=== PATIENT | female | born 1955 | race Caucasian/White ===

== ENCOUNTER → 2016-06-09 | Outpatient (CLI) | payer OTHER ==
[~2016-06-09] MED LIST: ASCA500 PO; CALC-388 PO; CLR10 PO; FERR1TAB39 PO; LOSA1TAB PO; METO50TA16 PO; MULT-506 PO; TRIA37.5 PO
[2016-06-09 09:44] LABS: BASO % 1.2 %; BASO ABS # 0.08 K/uL (0-0.2); COMPLETE YES; EOS % 4.5 %; IG% 0.3 %; LYMPH % 18.2 %; LYMPH ABS # 1.22 K/uL (1.2-3.4); MEAN CELL VOLUME 79.2 fL (80-100); MEAN CORPUSCULAR HEMOGLOBIN 24.8 pg (25-34); MEAN CORPUSCULAR HGB CONC 31.3 g/dl (32-36); MEAN PLATELET VOLUME 11.4 fL (7.4-10.4); NEUT % 61.8 %; PLATELET COUNT 246 K/uL (130-400); WHITE BLOOD COUNT 6.72 K/uL (4.8-10.8)
== END | disposition home or self-care (01) ==
LOC: C.LAB1850 07:00
PROVIDERS: ATTEND Nurse Practitioner Family
DX: D64.9 Anemia, unspecified (principal)

== ENCOUNTER → 2016-09-06 | Outpatient (CLI) | payer OTHER ==
[2016-09-06 16:59] LABS: BASO % 1.9 %; BASO ABS # 0.11 K/uL (0-0.2); COMPLETE YES; EOS % 5.8 %; HEMATOCRIT 40.5 % (37-47); IG% 0.2 %; LYMPH ABS # 1.48 K/uL (1.2-3.4); MEAN CELL VOLUME 78.8 fL (80-100); MEAN CORPUSCULAR HEMOGLOBIN 24.3 pg (25-34); MEAN CORPUSCULAR HGB CONC 30.9 g/dl (32-36); MONO % 10.4 %; NEUT % 55.7 %; PLATELET COUNT 266 K/uL (130-400); RED BLOOD COUNT 5.14 M/uL (4.2-5.4); WHITE BLOOD COUNT 5.69 K/uL (4.8-10.8)
[2016-09-06 17:19] LABS: BLOOD UREA NITROGEN 16 mg/dl (7-18); BUN/CREATININE RATIO 21.3 (10-20); CARBON DIOXIDE 31 mmol/L (21-32); CHLORIDE 107 mmol/L (98-107); CREATININE 0.73 mg/dl (0.60-1.20); GLUCOSE 127 mg/dl (70-99); POTASSIUM 3.8 mmol/L (3.5-5.1); SODIUM 144 mmol/L (136-145)
[2016-09-06 17:30] LABS: FERRITIN 9.8 ng/ml (8.0-388.0)
== END | disposition home or self-care (01) ==
LOC: C.LABBC 13:24
PROVIDERS: ATTEND Internal Medicine
DX: D64.9 Anemia, unspecified (principal)

== ENCOUNTER → 2016-09-23 | Outpatient (CLI) | payer OTHER ==
[2016-09-23 12:42] LABS: HEMATOCRIT 38.8 % (37-47); MEAN CELL VOLUME 76.5 fL (80-100); MEAN CORPUSCULAR HEMOGLOBIN 23.7 pg (25-34); MEAN CORPUSCULAR HGB CONC 30.9 g/dl (32-36); PLATELET COUNT 253 K/uL (130-400); RED BLOOD COUNT 5.07 M/uL (4.2-5.4); WHITE BLOOD COUNT 6.07 K/uL (4.8-10.8)
[2016-09-23 12:57] LABS: FERRITIN 6.3 ng/ml (8.0-388.0)
== END | disposition home or self-care (01) ==
LOC: C.LAB1850 10:27
PROVIDERS: ATTEND Nurse Practitioner Adult Health
DX: D64.9 Anemia, unspecified (principal); E83.19 Other disorders of iron metabolism

== ENCOUNTER → 2016-10-04 | Outpatient (CLI) | payer OTHER | END | disposition home or self-care (01) | LOC: C.LABSPEC 17:08 | PROVIDERS: ATTEND Internal Medicine | DX: D50.9 Iron deficiency anemia, unspecified (principal) ==

== ENCOUNTER → 2016-10-17 | Outpatient (CLI) | payer OTHER ==
[2016-10-17 14:57] LABS: BASO ABS # 0.08 K/uL (0-0.2); EOS % 2.7 %; HEMATOCRIT 40.9 % (37-47); IG% 0.4 %; LYMPH % 26.3 %; LYMPH ABS # 2.03 K/uL (1.2-3.4); MEAN CELL VOLUME 74.9 fL (80-100); MEAN CORPUSCULAR HEMOGLOBIN 22.7 pg (25-34); MEAN CORPUSCULAR HGB CONC 30.3 g/dl (32-36); MONO % 10.9 %; NEUT % 58.7 %; PLATELET COUNT 275 K/uL (130-400); RED BLOOD COUNT 5.46 M/uL (4.2-5.4); WHITE BLOOD COUNT 7.72 K/uL (4.8-10.8)
[2016-10-17 15:32] LABS: COMPLETE YES; MICROCYTOSIS PRESENT
== END | disposition home or self-care (01) ==
LOC: C.LAB1850 13:47
PROVIDERS: ATTEND Internal Medicine
DX: D64.9 Anemia, unspecified (principal)

== ENCOUNTER → 2016-11-21 | Outpatient (CLI) | payer OTHER ==
--- NOTE | 2016-11-22 07:41 | MAMMOGRAPHY REPORT ---
BILATERAL DIGITAL SCREENING MAMMOGRAM TOMOSYNTHESIS WITH CAD: 11/21/2016 CLINICAL HISTORY: Routine screening. Patient has no complaints. TECHNIQUE: Breast tomosynthesis in addition to standard 2D mammography was performed. Current study was also evaluated with a Computer Aided Detection (CAD) system. COMPARISON: Comparison is made to exams dated: 11/19/2015 mammogram, 11/17/2014 mammogram, 11/11/2013 ma mmogram, 11/07/2012 mammogram, 11/07/2011 mammogram, and 11/03/2010 mammogram - [facility] er. BREAST COMPOSITION: The tissue of both breasts is almost entirely fatty. FINDINGS: There are scattered benign-appearing microcalcifications. No suspicious mass, architectur al distortion or cluster of suspicious microcalcifications is seen. IMPRESSION: ACR BI-RADS CATEGORY 1: NEGATIVE There is no mammographic evidence of malignancy. A 1 year screening mammogram is recommended. The pa tient will receive written notification of the results. Approximately 10% of breast cancers are not detected with mammography. A negative mammographic report should not delay biopsy if a clinically suggestive mass is present. Luci Campbell M.D. ay/:11/21/2016 17:11:44 Gravel Wheeler: Marybeth GARCIA(Fortino)([place])([place]), [facility] letter sent: Normal 1/2 BI-RADS Code: ACR BI-RADS Category 1: Negative
== END | disposition home or self-care (01) ==
LOC: C.MAMM 10:02
PROVIDERS: ATTEND Obstetrics & Gynecology
DX: Z12.31 Encounter for screening mammogram for malignant neoplasm of breast (principal)

== ENCOUNTER → 2016-11-29 | Outpatient (CLI) | payer OTHER ==
[2016-11-29 13:08] LABS: BASO % 1.3 %; BASO ABS # 0.08 K/uL (0-0.2); COMPLETE YES; EOS % 4.3 %; HEMATOCRIT 41.2 % (37-47); IG% 0.3 %; LYMPH % 29.9 %; MEAN CELL VOLUME 76.4 fL (80-100); MEAN CORPUSCULAR HEMOGLOBIN 23.4 pg (25-34); MEAN CORPUSCULAR HGB CONC 30.6 g/dl (32-36); MONO % 12.6 %; NEUT % 51.6 %; PLATELET COUNT 251 K/uL (130-400); RED BLOOD COUNT 5.39 M/uL (4.2-5.4); WHITE BLOOD COUNT 6.02 K/uL (4.8-10.8)
[2016-11-29 15:02] LABS: BLOOD UREA NITROGEN 15 mg/dl (7-18); BUN/CREATININE RATIO 22.4 (10-20); CALCIUM 9.1 mg/dl (8.5-10.1); CARBON DIOXIDE 31 mmol/L (21-32); CHLORIDE 107 mmol/L (98-107); CREATININE 0.69 mg/dl (0.60-1.20); GLUCOSE 89 mg/dl (70-99); POTASSIUM 4.3 mmol/L (3.5-5.1); SODIUM 143 mmol/L (136-145)
== END | disposition home or self-care (01) ==
LOC: C.LAB1850 11:38
PROVIDERS: ATTEND Internal Medicine
DX: I10 Essential (primary) hypertension (principal); D64.9 Anemia, unspecified

== ENCOUNTER → 2016-12-22 | Outpatient (CLI) | payer OTHER ==
[~2016-12-22] MED LIST changes: +OPTIRAY 320 IV PRN
--- NOTE | 2016-12-22 15:52 | DIAGNOSTIC IMAGING REPORT ---
CT SCAN OF THE ABDOMEN AND PELVIS WITH IV CONTRAST CLINICAL HISTORY: Meckel's diverticulum. Anemia. COMPARISON STUDY: No priors. TECHNIQUE: Following the IV administration of 116 cc of Optiray 320, CT scan of the abdomen and pelvis is performed from the lung bases to the proximal femora. Images are reviewed in the axial, sagittal, and coronal planes. IV contrast was administered without complication. Automated dose control exposure was utilized. The examination is degraded by large body habitus, and by streak artifact from the body wall abutting the CT gantry. A dose lowering technique was utilized adhering to the principles of ALARA. CT DOSE: 1549.08 mGy.cm FINDINGS: Lung bases: The heart is normal in size and without pericardial effusion. The lung bases are clear noting dependent atelectasis. Liver: The contrast-enhanced liver is enlarged, measuring 22 cm in length. The liver demonstrates diffusely diminished attenuation consistent with hepatic steatosis. Fatty sparing is seen adjacent to gallbladder fossa. There is no intrahepatic biliary ductal dilatation. The hepatic veins and portal veins are patent. Gallbladder: Unremarkable. Spleen: Normal in size and attenuation. Pancreas: Unremarkable. Adrenal glands: Unremarkable. Kidneys: The contrast enhanced kidneys are normal in size and without hydronephrosis. The kidneys enhance symmetrically. A subcentimeter cyst is noted in the right kidney. Abdominal vasculature: The abdominal aorta is normal in course and caliber. Bowel: The small bowel and colon are normal in course and caliber. The appendix is well-visualized and normal. There is no convincing CT evidence of Meckel's diverticulum as clinically queried. Peritoneum: There is no intraperitoneal free air or abdominal ascites. There is a small fat-containing supraumbilical hernia. Lymphadenopathy: Prominent mesenteric lymph nodes in the right lower quadrant measure up to 12 mm in short axis. Pelvic viscera: The bladder is normal as visualized. The uterus is surgically absent. No adnexal lesion is seen. Skeletal structures: The skeletal structures are osteopenic. Mild to moderate lumbosacral spondylosis is observed. No lytic or blastic lesions are seen. Sclerotic change is seen in the sacroiliac joints. There is a 2.5 cm lesion within the central spinal canal seen at the level of T11. This is best seen on axial image #103. IMPRESSION: 1. There are no acute infectious or inflammatory findings in the abdomen or pelvis. 2. There is no convincing CT evidence of Meckel's diverticulum as clinically queried. 3. There is a 2.5 cm lesion identified within the central spinal canal the level of T11 which contains coarse calcifications. The appearance is nonspecific but not typical for a disc fragment, and an underlying neoplasm such as meningioma or possibly an astrocytoma is to be excluded. Correlation with a contrast-enhanced MRI of the thoracolumbar spine is recommended for further interrogation. 4. Hepatomegaly and hepatic steatosis. 5. Prominent mesenteric lymph nodes are incidentally noted in the right lower quadrant. 6. Additional findings as above. Electronically signed by: Aguilar Jiménez M.D. 12/22/2016 3:51 PM Dictated Date/Time: 12/22/2016 3:34 PM
== END | disposition home or self-care (01) ==
LOC: C.CTS 14:37
PROVIDERS: ATTEND Surgery
DX: K76.0 Fatty (change of) liver, not elsewhere classified (principal); R90.89 Other abnormal findings on diagnostic imaging of central nervous system

== ENCOUNTER → 2017-01-02 | Outpatient (CLI) | payer OTHER ==
[~2017-01-02] MED LIST changes: -OPTIRAY 320 IV PRN
--- NOTE | 2017-01-02 10:03 | DIAGNOSTIC IMAGING REPORT ---
GI MECKLES SCAN CLINICAL HISTORY: 61 years-old Female presenting with Meckel's diverticulum. TECHNIQUE: Following the IV administration of 16 mCi of technetium 99m pertechnetate, nuclear Meckel's scan was performed. The patient received cimetidine the night before the exam to improve the sensitivity of the exam. Initially, anterior flow images were obtained every 2 seconds. Anterior dynamic images were subsequently obtained every minute for a total of 60 minutes. COMPARISON: None. FINDINGS: Normal radiotracer distribution in the blood pool on anterior flow images. On the subsequent dynamic imaging, no focal tracer uptake in the region of the small bowel to suggest a Meckel's diverticulum. Physiologic distribution of radiotracer in the stomach. IMPRESSION: No evidence of a Meckel's diverticulum. Notably, approximately 70% of Meckel's diverticula with a history of prior bleeding contain ectopic pancreatic tissue, which notably will be photopenic on a pertechnetate examination. Electronically signed by: Abel Perales M.D. 01/02/2017 10:02 AM Dictated Date/Time: 01/02/2017 9:57 AM
== END | disposition home or self-care (01) ==
LOC: C.NUCL 08:25
PROVIDERS: ATTEND Surgery
DX: Q43.0 Meckel's diverticulum (displaced) (hypertrophic) (principal)

== ENCOUNTER → 2017-01-12 | Outpatient (CLI) | payer OTHER ==
[2017-01-12 14:01] LABS: BLOOD UREA NITROGEN 14 mg/dl (7-18); BUN/CREATININE RATIO 18.2 (10-20); CALCIUM 8.8 mg/dl (8.5-10.1); CARBON DIOXIDE 30 mmol/L (21-32); CHLORIDE 105 mmol/L (98-107); CREATININE 0.77 mg/dl (0.60-1.20); GLUCOSE 97 mg/dl (70-99); POTASSIUM 3.9 mmol/L (3.5-5.1); SODIUM 139 mmol/L (136-145)
== END | disposition home or self-care (01) ==
LOC: C.LAB1850 10:35
PROVIDERS: ATTEND Internal Medicine
DX: R71.0 Precipitous drop in hematocrit (principal); D64.9 Anemia, unspecified

== ENCOUNTER → 2017-01-16 | Outpatient (CLI) | payer OTHER ==
[~2017-01-16] MED LIST changes: +GADAVIST IV PRN
--- NOTE | 2017-01-16 14:34 | DIAGNOSTIC IMAGING REPORT ---
MRI OF THE LUMBAR SPINE WITH AND WITHOUT CONTRAST CLINICAL HISTORY: Abnormal finding on imaging study. COMPARISON STUDY: CT of the abdomen and pelvis December 22, 2016. TECHNIQUE: Utilizing a 1.5 Romana magnet and dedicated coil, multiplanar, multiecho imaging of the lumbar spine was performed before and after uneventful IV administration of 12 mL of Gadavist. FINDINGS: For purposes of numbering on this exam, the L5-S1 disc space is assigned to axial image 23 of 25. There is slight anterolisthesis of L4 and L5. Paravertebral soft tissues are unremarkable. The conus terminates at the mid L1 level. Note is made of an oval shaped avidly enhancing intradural extramedullary lesion within the left posterior lateral aspect of the thecal sac at the T11-T12 level. This mass measures 2.2 x 1.6 x 1.5 cm and corresponds to the abnormality shown on prior CT. T1 and T2 hypointense foci within this lesion reflect calcification. No additional intracanalicular masses are present. This results in marked narrowing of the central canal with displacement and deformity of the cord. Best shown on STIR sequence, there is suggestion of increased T2 signal within the thoracic cord which is partially imaged on since exam. This cord signal abnormality is at least at the T10 and T11 levels. The more proximal thoracic cord was not imaged on this exam. L1-2: The central canal and neural foramen are patent. L2-3: The central canal and neural foramen are patent. L3-4: There is disc space narrowing with disc bulge. There is a left foraminal disc protrusion. The central canal is mildly narrowed. There is mild to moderate narrowing of the left neural foramen. L4-5: There is anterolisthesis with facet arthrosis. Central canal is patent. There is mild narrowing of the right neural foramen. L5-S1: There is a tiny central disc protrusion. The central canal and neural foramen are patent. IMPRESSION: 1. 2.2 x 1.6 x 1.5 cm intradural extramedullary lesion within the left posterolateral aspect of the canal at the T11-T12 level which corresponds to the lesion shown on prior CT. Marked narrowing of the canal with significant mass effect upon the cord. Suspected associated cord signal abnormality which is partially imaged on this exam. 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 An intracanalicular schwannoma or neurofibroma could appear similar. 2. Mild multilevel degenerative changes within the lumbar spine, as described above. Electronically signed by: Julito Reis M.D. 01/16/2017 2:33 PM Dictated Date/Time: 01/16/2017 11:46 AM
== END | disposition home or self-care (01) ==
LOC: C.MRI 09:29
PROVIDERS: ATTEND Internal Medicine
DX: G95.9 Disease of spinal cord, unspecified (principal); M89.8X8 Other specified disorders of bone, other site

== ENCOUNTER → 2017-06-30 | Outpatient (CLI) | payer OTHER ==
[~2017-06-30] MED LIST changes: -GADAVIST IV PRN
[2017-06-30 15:37] LABS: HEMATOCRIT 39.2 % (37-47); HEMOGLOBIN 12.7 g/dL (12.0-16.0); MEAN CORPUSCULAR HGB CONC 32.4 g/dl (32-36); PLATELET COUNT 234 K/uL (130-400); RED CELL DISTRIBUTION WIDTH CV 17.2 % (11.5-14.5); RED CELL DISTRIBUTION WIDTH SD 48.7 fL (36.4-46.3); WHITE BLOOD COUNT 6.79 K/uL (4.8-10.8)
[2017-06-30 16:08] LABS: CREATININE 0.79 mg/dl (0.60-1.20)
[2017-06-30 16:12] LABS: TRANSFERRIN 304 mg/dl (200-360)
== END | disposition home or self-care (01) ==
LOC: C.LAB1850 14:42
PROVIDERS: ATTEND Internal Medicine
DX: D32.1 Benign neoplasm of spinal meninges (principal)

== ENCOUNTER → 2017-07-12 | Outpatient (CLI) | payer OTHER ==
[~2017-07-12] MED LIST changes: +GADAVIST IV PRN
--- NOTE | 2017-07-12 15:38 | DIAGNOSTIC IMAGING REPORT ---
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 TECHNIQUE: Multisequence, multiplanar MR imaging of the thoracic spine was performed before and after the administration of intravenous contrast. IV contrast: 11 mL of Gadavist. COMPARISON: MR of the lumbar spine from 01/16/2017. FINDINGS: Localizer images: Patient is status post hysterectomy. Normal thoracic kyphosis. The T7 vertebral body demonstrates a T1 hyperintense fat-containing lesion compatible with a benign hemangioma. Remaining vertebral bodies demonstrate normal height, alignment, and bone marrow signal intensity. Anterior osteophytosis noted at several levels throughout the thoracic spine. Prominent disc osteophyte with posterior bony spurring noted at T8-9 with resultant mild effacement of the central ventral thecal sac. This does not appear to significantly contour the spinal cord at this level. Mild neural foraminal narrowing suggested on the left at T7-8 with the remainder of the neural foramina widely patent and the thoracic spine. Thoracic spinal cord normal in morphology and signal intensity. Paraspinal soft tissues normal. Edema and T2 hyperintense granulation tissue noted in the operative bed at T10-11, where there are laminectomy defects. No fluid collection in the operative bed. Extensive epidural enhancement likely relates to granulation tissue. No nodular, masslike enhancement to suggest recurrent disease. No abnormal enhancement of the spinal cord. IMPRESSION: 1. Postsurgical changes at T10-T11 with laminectomy defects and resection of the previously noted intradural extra medullary mass compatible with meningioma. No evidence of recurrent disease. 2. Focal disc osteophyte complex at T8-9 central thecal sac effacement, which is does not appear to significantly narrow the spinal canal. 3. Mild left neural foraminal narrowing at T8-9. Electronically signed by: Abel Perales M.D. 07/12/2017 3:36 PM Dictated Date/Time: 07/12/2017 3:28 PM
== END | disposition home or self-care (01) ==
LOC: C.MRI 14:09
PROVIDERS: ATTEND Neurological Surgery
DX: D32.1 Benign neoplasm of spinal meninges (principal); M25.78 Osteophyte, vertebrae

== ENCOUNTER → 2017-11-27 | Outpatient (CLI) | payer OTHER ==
[~2017-11-27] MED LIST changes: -GADAVIST IV PRN
== END | disposition home or self-care (01) ==
LOC: C.MAMM 14:42
PROVIDERS: ATTEND Internal Medicine
DX: Z13.820 Encounter for screening for osteoporosis (principal)

== ENCOUNTER → 2017-11-28 | Outpatient (CLI) | payer OTHER ==
--- NOTE | 2017-11-30 07:56 | MAMMOGRAPHY REPORT ---
BILATERAL DIGITAL SCREENING MAMMOGRAM TOMOSYNTHESIS WITH CAD: 11/28/2017 CLINICAL HISTORY: Routine screening. Patient has no complaints. TECHNIQUE: The study was acquired using full field digital technology and interpreted from soft copy. Breast tomosynthesis in addition to standard 2D mammography was performed. Current study was also ev aluated with a Computer Aided Detection (CAD) system. COMPARISON: Comparison is made to exams dated: 11/21/2016 mammogram, 11/19/2015 mammogram, 11/17/2014 m ammogram, 11/11/2013 mammogram, 11/07/2012 mammogram, and 11/07/2011 mammogram - [facility] er. BREAST COMPOSITION: The tissue of both breasts is almost entirely fatty. FINDINGS: There are benign calcifications in both breasts. No suspicious mass, architectural distortion or clu ster of microcalcifications is seen. IMPRESSION: ACR BI-RADS CATEGORY 2: BENIGN There is no mammographic evidence of malignancy. A 1 year screening mammogram is recommended.( [id number]) The patient will receive written notification of the results. Some breast cancers are not detected with mammography. A negative mammographic report should not romina y biopsy if a clinically suggestive mass is present. Luci Campbell M.D. ay/:11/28/2017 16:24:16 Pipeline Engineer: RT Jazmin(Fort[place])(M), [facility] letter sent: Normal 1/2 BI-RADS Code: ACR BI-RADS Category 2: Benign
== END | disposition home or self-care (01) ==
LOC: C.MAMM 12:58
PROVIDERS: ATTEND Obstetrics & Gynecology
DX: Z12.31 Encounter for screening mammogram for malignant neoplasm of breast (principal)